=== PATIENT | male | born 1985 | race Native Hawaiian/Other Pacific Islander ===

== ENCOUNTER 2018-05-17 23:27 | Emergency (ER) | payer OTHER ==
[~2018-05-17] VITALS: Ht 170.2 cm; Wt 71.8 kg
[2018-05-18] MEDS ORDERED: ACETAMINOPHEN 325 MG TAB PO ONE (00:45)
[2018-05-18 01:31] VITALS: BP 132/76
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
== END 2018-05-18 01:33 | disposition home or self-care (01) ==
LOC: M ED 23:27
DX: S40.011A Contusion of right shoulder, initial encounter (principal); R42 Dizziness and giddiness; V86.3 Unspecified occupant of special all-terrain or other off-road motor vehicle injured in traffic accident; Y92.9 Unspecified place or not applicable; Y93.9 Activity, unspecified; Y99.9 Unspecified external cause status

== ENCOUNTER 2019-05-27 18:20 | Emergency (ER) | payer OTHER ==
[~2019-05-27] VITALS: Ht 167.6 cm; Wt 75.0 kg
[2019-05-27 18:21] VITALS: BP 138/75
[2019-05-27] MEDS ORDERED: COLD1MIS PO (18:25)
[2019-05-27] MEDS ORDERED: NAPR-837 PO (18:25)
--- NOTE | 2019-05-27 19:08 | REP ---
Clinical: Cough and shortness of breath. Technique: PA and lateral. Comparison: None. Findings: Mediastinum and cardiac silhouette are normal. No focal consolidation, effusion, or pneumothorax. Mild peribronchial thickening raises the possibility of bronchitis. Skeletal structures are intact. Impression: No focal consolidation. Possible bronchitis. Electronically Signed by Carlo Ko MD 05/27/2019 06:59 P
[2019-05-27 19:13] LABS: INFLUENZA A AMPLIFICATION NEGATIVE (NEGATIVE); INFLUENZA B AMPLIFICATION NEGATIVE (NEGATIVE)
[2019-05-27] MEDS ORDERED: AZIT-12 PO (19:25)
[2019-05-27] MEDS ORDERED: VENTAER INH (19:25)
[2019-05-28] MEDS ORDERED: ACET-683 PO (08:11)
== END 2019-05-27 19:33 | disposition home or self-care (01) ==
LOC: M ED 18:20
DX: J20.9 Acute bronchitis, unspecified (principal); Z79.899 Other long term (current) drug therapy

== ENCOUNTER 2019-05-28 08:02 | Emergency (ER) | payer OTHER ==
[~2019-05-28] VITALS: Ht 167.6 cm; Wt 77.8 kg
[~2019-05-28 08:02] MED LIST: AZIT-12 PO; COLD1MIS PO; NAPR-837 PO; VENTAER INH
[2019-05-28] MEDS ORDERED: ACET-683 PO (08:11)
[2019-05-28 09:13] VITALS: BP 135/80
== END 2019-05-28 09:22 | disposition home or self-care (01) ==
LOC: M ED 08:02
DX: J40 Bronchitis, not specified as acute or chronic (principal); Z79.2 Long term (current) use of antibiotics; Z79.1 Long term (current) use of non-steroidal anti-inflammatories (NSAID); Z79.51 Long term (current) use of inhaled steroids